=== PATIENT | female | born 1995 | race American Indian/Alaskan Native ===

== ENCOUNTER 2016-06-14 18:38 | Emergency (ER) | payer MEDICAID ==
[2016-06-14 18:56] VITALS: PULSE 82; TEMP 98.4; O2SAT 100
--- NOTE | 2016-06-14 19:35 | C.PDOC ---
History Of Present Illness 20 y/o F c no PMHx p/w vomiting and loose stools that began 15 hours ago. Patient states she ate out at a restaurant last night and awoke at 4am with vomiting. Notes vomited twice, NBNB, then diarrhea 3 episodes NB. She states the vomiting has stopped and she feels very well right now but stayed home from work and wanted to make sure it was nothing more serious but thinks it is a stomach virus. Denies fever, chills, weakness, chest pain, dyspnea, dysuria, vaginal bleeding. Time Seen by Provider: 06/14/16 19:25 Chief Complaint (Nursing): Abdominal Pain Past Medical History Vital Signs: Last Vital Signs Temp 98.4 F 06/14/16 18:55 Pulse 82 06/14/16 18:55 Resp 20 06/14/16 18:55 BP 101/67 06/14/16 18:55 Pulse Ox 100 06/14/16 19:38 - [facility] Procedures MANUAL ASSIST DELIV NEC (09/08/12) Family History: States: Unknown Family Hx - Social History Hx Tobacco Use: No Hx Alcohol Use: No Hx Substance Use: No - Immunization History Hx Tetanus Toxoid Vaccination: Yes Hx Influenza Vaccination: No Hx Pneumococcal Vaccination: No Review Of Systems Except As Marked, All Systems Reviewed And Found Negative. Constitutional: Negative for: Fever Cardiovascular: Negative for: Chest Pain Physical Exam - Physical Exam Additional Physical Exam Comments: Constitutional: No acute distress. Head: Normocephalic. Atraumatic. Eyes: PERRL. ENT: Moist mucous membranes. Neck: Supple. Cardiovascular: Regular rate. Chest: No tenderness. Respiratory: Clear to auscultation bilaterally. GI: Soft. Nontender. Nondistended. Back: No CVA tenderness. Musculoskeletal: No tenderness or swelling of extremities. Skin: No rash. Neurologic: Alert, no focal deficit. ED Course And Treatment O2 Sat by Pulse Oximetry: 100 Medical Decision Making Medical Decision Making: Vital signs normal, patient states she feels well. Advised continued hydration, Zofran as needed, wash hands, rest, return to ER for worsening pain, specific location of pain, intractible vomiting. Disposition - Disposition Disposition: HOME/ ROUTINE Disposition Time: 19:33 Condition: STABLE Prescriptions: Ondansetron ODT [Zofran ODT] 4 mg PO Q8 #12 odt Instructions: Gastroenteritis (ED) Forms: Work Excuse - Clinical Impression Clinical Impression: Vomiting, Diarrhea - Scribe Statement The provider has reviewed the documentation as recorded by the Scribhira Torrez All medical record entries made by the Damonibe were at my direction and personally dictated by me. I have reviewed the chart and agree that the record accurately reflects my personal performance of the history, physical exam, medical decision making, and the department course for this patient. I have also personally directed, reviewed, and agree with the discharge instructions and disposition.
[2016-06-14 19:54] VITALS: BP 110/69; RESP 18
== END 2016-06-14 19:56 | disposition home or self-care (01) ==
LOC: C.ER 18:38
DX: R11.10 Vomiting, unspecified (principal); R19.7 Diarrhea, unspecified

== ENCOUNTER 2016-07-20 19:37 | Emergency (ER) | payer MEDICAID ==
[2016-07-20 20:08] VITALS: RESP 20
[2016-07-20 20:50] LABS: RBC URINE 2 /hpf (0-3); URINE BACTERIA RARE (<OCC); URINE BILIRUBIN NEGATIVE (NEGATIVE); URINE BLOOD NEGATIVE (NEGATIVE); URINE COLOR Yellow (YELLOW); URINE GLUCOSE (UA) NORMAL (Normal); URINE KETONE NEGATIVE (NEGATIVE); URINE LEUKOCYTE ESTERASE NEG Leu/uL (Negative); URINE PROTEIN NEGATIVE (NEGATIVE); URINE UROBILINOGEN NORMAL mg/dL (0.2-1.0); WBC URINE 1 /hpf (0-5)
--- NOTE | 2016-07-20 20:56 | C.PDOC ---
History Of Present Illness A 20 year old female presents to the ER c/o mild aching lower back pain that is non-radiating that began this morning. Patient notes she took Advil and the pain went away. Patient now comes in for evaluation, she wants to make sure she does not get a kidney infection. Patient denies fever, chills, nausea, vomiting , dysuria, pelvic pain, or any other complaints. Time Seen by Provider: 07/20/16 20:14 Chief Complaint (Nursing): Back Pain History Per: Patient History/Exam Limitations: no limitations Onset/Duration Of Symptoms: Hrs Current Symptoms Are (Timing): Still Present Severity: Mild Exacerbating Factor(s): Nothing Recent travel outside of the [place]: No Additional History Per: Patient Past Medical History Reviewed: Historical Data, Nursing Documentation, Vital Signs Vital Signs: Last Vital Signs Temp 98.1 F 07/20/16 21:26 Pulse 88 07/20/16 21:26 Resp 20 07/20/16 21:26 BP 116/78 07/20/16 21:26 Pulse Ox 99 07/20/16 21:26 - Medical History PMH: No Chronic Diseases - [facility] Procedures MANUAL ASSIST DELIV NEC (09/08/12) Family History: States: Unknown Family Hx - Social History Hx Tobacco Use: No Hx Alcohol Use: No Hx Substance Use: No - Immunization History Hx Tetanus Toxoid Vaccination: Yes Hx Influenza Vaccination: No Hx Pneumococcal Vaccination: No Review Of Systems Except As Marked, All Systems Reviewed And Found Negative. Constitutional: Negative for: Fever, Chills Gastrointestinal: Negative for: Nausea, Vomiting Musculoskeletal: Positive for: Back Pain (Lower back pain) Physical Exam - Physical Exam Appears: Non-toxic, No Acute Distress Skin: Warm, Dry Head: Atraumatic, Normacephalic Eye(s): bilateral: Normal Inspection, EOMI Neck: Normal ROM Chest: Symmetrical Cardiovascular: Rhythm Regular, No Murmur Respiratory: Normal Breath Sounds, No Accessory Muscle Use, No Rales, No Rhonchi , No Wheezing Gastrointestinal/Abdominal: Soft, No Tenderness Back: Normal Inspection, No CVA Tenderness, No Vertebral Tenderness Neurological/Psych: Oriented x3, Normal Speech, Other (No focal deficit) ED Course And Treatment O2 Sat by Pulse Oximetry: 100 (RA) Pulse Ox Interpretation: Normal Medical Decision Making Medical Decision Making: Impression: 20 y/o c/o lower back pain that began this morning resolved with motrin Plans: -UA UA and preng negative. Patient is in no acute distress at this time. Patient was advised to follow up with PMD for further evaluation. Disposition Counseled Patient/Family Regarding: Diagnosis, Need For Followup - Disposition Disposition: HOME/ ROUTINE Disposition Time: 21:25 Condition: GOOD Additional Instructions: Take Motrin or other anti-inflammatory medication, with food to not upset stomach. Follow up with orthopedic if pain persists over one week. Instructions: Back Pain (ED) Forms: Work Excuse - POA Present On Arrival: None - Clinical Impression Clinical Impression: Low back pain - Scribe Statement The provider has reviewed the documentation as recorded by the Scribe Richmond vergara All medical record entries made by the Damonibhira were at my direction and personally dictated by me. I have reviewed the chart and agree that the record accurately reflects my personal performance of the history, physical exam, medical decision making, and the department course for this patient. I have also personally directed, reviewed, and agree with the discharge instructions and disposition.
[2016-07-20 21:29] VITALS: BP 116/78; PULSE 88; TEMP 98.1
[2016-07-20 21:54] VITALS: O2SAT 100
== END 2016-07-20 21:26 | disposition home or self-care (01) ==
LOC: C.ER 19:37
DX: M54.5 Low back pain (principal)

== ENCOUNTER 2016-09-15 00:59 | Emergency (ER) | payer MEDICAID ==
[2016-09-15 01:52] LABS: HCG,QUALITATIVE URINE NEGATIVE (NEGATIVE)
[2016-09-15 01:59] LABS: URINE CLARITY Hazy (Clear); URINE COLOR YELLOW (YELLOW)
[2016-09-15 02:00] LABS: SQUAMOUS EPITHIAL 5 /hpf (0-5); URINE BILIRUBIN NEGATIVE (NEGATIVE); URINE BLOOD NEGATIVE (NEGATIVE); URINE GLUCOSE (UA) NEGATIVE (Normal); URINE LEUKOCYTE ESTERASE TRACE Leu/uL (Negative); URINE NITRATE NEGATIVE (NEGATIVE); URINE PROTEIN NEGATIVE (NEGATIVE); URINE UROBILINOGEN Normal mg/dL (0.2-1.0)
[2016-09-15] MEDS ORDERED: Sodium Chloride 0.9% 1,000 ML IV STA (02:24)
[2016-09-15] MEDS ORDERED: Sodium Chloride 0.9% 1,000 ML ONE (02:36)
[2016-09-15 02:41] LABS: BASO % 0.5 % (0.0-2.0); EOS # 0.2 K/uL (0.0-0.7); EOS % 2.3 % (0.0-4.0); HEMOGLOBIN 12.3 g/dL (11.0-16.0); LYMPH # 2.7 K/uL (1.0-4.3); LYMPH % 26.6 % (20.0-40.0); MEAN CELL VOLUME 73.2 fL (81.0-99.0); MEAN CORPUSCULAR HEMOGLOBIN 23.4 pg (27.0-31.0); MEAN CORPUSCULAR HGB CONC 31.9 g/dL (33.0-37.0); MEAN PLATELET VOLUME 8.7 fL (7.2-11.7); MONO # 0.8 K/uL (0.0-0.8); MONO % 8.1 % (0.0-10.0); NEUT # 6.2 K/uL (1.8-7.0); NEUT % 62.5 % (50.0-75.0); RBC 5.25 Mil/uL (3.80-5.20); RED CELL DISTRIBUTION WIDTH 14.1 % (11.5-14.5)
[2016-09-15 02:55] LABS: ALBUMIN 3.9 g/dL (3.5-5.0)
[2016-09-15 02:57] VITALS: TEMP 98.3
[2016-09-15 02:58] LABS: ALB/GLOB RATIO 1.2 (1.0-2.1); ALT/SGPT 42 U/L (9-52); AST/SGOT 42 U/L (14-36); BLOOD UREA NITROGEN 14 mg/dL (7-17); GFR AFRICAN-AMERICAN > 60; GFR NON-AFRICAN AMERICAN > 60
[2016-09-15 02:59] LABS: CALCIUM 8.8 mg/dl (8.6-10.4); LIPASE 80 U/L (23-300)
--- NOTE | 2016-09-15 03:21 | C.PDOC ---
History Of Present Illness 20 year old female who presents to the ER with a complaint of pelvic pain for the past 2 days. Patient states she had irritation to the vaginal area for the past few days and pain began yesterday but worsened today. Denies dysuria, hematuria, frequency, incontinence, vomiting, or diarrhea. Chief Complaint (Nursing): Abdominal Pain History Per: Patient History/Exam Limitations: no limitations Onset/Duration Of Symptoms: Days Current Symptoms Are (Timing): Still Present Location Of Pain/Discomfort: Suprapubic Radiation Of Pain To:: None Quality Of Discomfort: Unable To Describe Associated Symptoms: denies: Nausea, Vomiting, Urinary Symptoms Exacerbating Factors: None Alleviating Factors: None Recent travel outside of the [place]: No Abnormal Vaginal Bleeding: No Past Medical History Reviewed: Historical Data, Nursing Documentation, Vital Signs Vital Signs: Last Vital Signs Temp 98.3 F 09/15/16 01:27 Pulse 67 09/15/16 06:27 Resp 16 09/15/16 06:27 BP 110/63 09/15/16 06:27 Pulse Ox 98 09/15/16 06:28 - Medical History PMH: No Chronic Diseases Surgical History: No Surg Hx - [facility] Procedures MANUAL ASSIST DELIV NEC (09/08/12) Family History: States: Unknown Family Hx - Social History Hx Tobacco Use: No Hx Alcohol Use: No Hx Substance Use: No - Immunization History Hx Tetanus Toxoid Vaccination: Yes Hx Influenza Vaccination: No Hx Pneumococcal Vaccination: No Review Of Systems Gastrointestinal: Negative for: Vomiting, Diarrhea Genitourinary: Positive for: Pelvic Pain. Negative for: Dysuria, Frequency, Incontinence, Hematuria Physical Exam - Physical Exam Appears: Non-toxic Skin: Normal Color, Warm, Dry Head: Atraumatic, Normacephalic Oral Mucosa: Moist Chest: Symmetrical, No Tenderness Cardiovascular: Rhythm Regular, No Murmur Respiratory: Normal Breath Sounds, No Rales, No Rhonchi, No Wheezing Gastrointestinal/Abdominal: Normal Exam, Tenderness (Suprapubic), No Guarding, No Rebound Pelvic: Normal Speculum Exam, Cervical Motion Tenderness, Adnexal Tenderness, Other (Cottage cheese like discharge) Neurological/Psych: Oriented x3, Normal Speech, Normal Cognition ED Course And Treatment - Laboratory Results Result Diagrams: 09/15/16 02:34 09/15/16 02:34 O2 Sat by Pulse Oximetry: 98 (Room air) Pulse Ox Interpretation: Normal - CT Scan/US Pelvic US Other Rad Studies (CT/US): Read By Radiologist, Radiology Report Reviewed CT/US Interpretation: US Pelvis, Transabdominal and Transvaginal. CLINICAL HISTORY: 20 years old, female; Pain; Pelvic pain. TECHNIQUE: Real-time transabdominal and transvaginal pelvic ultrasound (complete) with image documentation. Transvaginal imaging was used for better evaluation of the endometrium and adnexa. COMPARISON: No relevant prior studies available. FINDINGS: Uterus/cervix: Unremarkable in echogenicity and size measuring 9.0 x 3.5 x 5.3 cm. The uterus is. retroverted. Normal endometrial stripe thickness, measuring 12 mm. No myometrial mass. Right ovary: Unremarkable in echogenicity and size measuring 4.6 x 1.8 x 2.5 cm. No mass. Normal blood flow. Left ovary : Unremarkable in echogenicity and size measuring 3.9 x 1.3 x 2.3 cm. No mass. Normal. blood flow. Free fluid: A small amount of complex free fluid is detected adjacent to the left adnexa. IMPRESSION: A small amount of complex free fluid adjacent to the left adnexa. Otherwise, unremarkable sonographic evaluation of the female pelvis, as detailed above. Progress Note: Blood work, urinalysis, and pelvic US ordered. Toradol and IV fluids administered. On reevaluation, patient is resting comfortably and is no longer in pain. Will discharge home with instructions to follow up with [employer] or PMD. Rocephin, Zithromax and Diflucan were given. Disposition - Disposition Disposition: HOME/ ROUTINE Disposition Time: 06:16 Condition: GOOD Additional Instructions: Follow up with your PMD and OBGYN within 1-2 days. Return to ED if feel worse. Prescriptions: Ibuprofen [Motrin Tab] 600 mg PO Q8 #30 tab Instructions: Vulvovaginal Candidiasis (ED), Pelvic Pain in Women (ED) - Clinical Impression Clinical Impression: Pelvic pain, Vaginitis - Scribe Statement The provider has reviewed the documentation as recorded by the Scribhira Monet All medical record entries made by the Scribe were at my direction and personally dictated by me. I have reviewed the chart and agree that the record accurately reflects my personal performance of the history, physical exam, medical decision making, and the department course for this patient. I have also personally directed, reviewed, and agree with the discharge instructions and disposition.
--- NOTE | 2016-09-15 05:16 | US ---
US Pelvis, Transabdominal and Transvaginal CLINICAL HISTORY: 20 years old, female; Pain; Pelvic pain TECHNIQUE: Real-time transabdominal and transvaginal pelvic ultrasound (complete) with image documentation. Transvaginal imaging was used for better evaluation of the endometrium and adnexa. COMPARISON: No relevant prior studies available. FINDINGS: Uterus/cervix: Unremarkable in echogenicity and size measuring 9.0 x 3.5 x 5.3 cm. The uterus is retroverted. Normal endometrial stripe thickness, measuring 12 mm. No myometrial mass. Right ovary: Unremarkable in echogenicity and size measuring 4.6 x 1.8 x 2.5 cm. No mass. Normal blood flow. Left ovary: Unremarkable in echogenicity and size measuring 3.9 x 1.3 x 2.3 cm. No mass. Normal blood flow. Free fluid: A small amount of complex free fluid is detected adjacent to the left adnexa. IMPRESSION: A small amount of complex free fluid adjacent to the left adnexa. Otherwise, unremarkable sonographic evaluation of the female pelvis, as detailed above.
[2016-09-15] MEDS ORDERED: cefTRIAXone (Rocephin) 250 mg Inj IM STA (05:43)
[2016-09-15 06:28] VITALS: BP 110/63; PULSE 67; RESP 16; O2SAT 98
== END 2016-09-15 06:27 | disposition home or self-care (01) ==
LOC: C.ER 00:59
DX: N76.0 Acute vaginitis (principal); R10.2 Pelvic and perineal pain
CPT/HCPCS: 76830; 76856; 80053; 81001; 83690; 84703; 85025; 87491; 87591; 96361; 96372; 96374; 99284; J0696; J1885; J7040

== ENCOUNTER 2016-12-11 15:57 | Emergency (ER) | payer SELFPAY ==
[2016-12-11 16:07] VITALS: RESP 16; TEMP 98.4; O2SAT 98
[2016-12-11] MEDS ORDERED: Sodium Chloride 0.9% 1,000 ML IV ONE (16:27)
[2016-12-11 17:02] LABS: RBC URINE < 1 /hpf (0-3); URINE BACTERIA RARE (<OCC); URINE BILIRUBIN NEGATIVE (NEGATIVE); URINE BLOOD NEGATIVE (NEGATIVE); URINE COLOR Straw (YELLOW); URINE GLUCOSE (UA) NORMAL (Normal); URINE KETONE NEGATIVE (NEGATIVE); URINE LEUKOCYTE ESTERASE NEG Leu/uL (Negative); URINE PROTEIN NEGATIVE (NEGATIVE); URINE UROBILINOGEN NORMAL mg/dL (0.2-1.0); WBC URINE < 1 /hpf (0-5)
[2016-12-11 17:17] LABS: BASO % 0.6 % (0.0-2.0); EOS # 0.2 K/uL (0.0-0.7); HEMATOCRIT 35.9 % (34.0-47.0); LYMPH # 2.2 K/uL (1.0-4.3); LYMPH % 33.5 % (20.0-40.0); MEAN CELL VOLUME 73.3 fL (81.0-99.0); MEAN CORPUSCULAR HEMOGLOBIN 23.8 pg (27.0-31.0); MEAN CORPUSCULAR HGB CONC 32.5 g/dL (33.0-37.0); MEAN PLATELET VOLUME 8.8 fL (7.2-11.7); MONO # 0.7 K/uL (0.0-0.8); NRBC % 0.1 % (0.0-2.0); WHITE BLOOD COUNT 6.5 K/uL (4.8-10.8)
--- NOTE | 2016-12-11 17:25 | C.PDOC ---
History Of Present Illness 21 y/o female presents to ED with complaints of cramping abdominal pain for 2 days. Patient is requesting for baby to be checked out and denies fever, chills, vaginal bleeding, urinary symptoms, back pain or any other complaints at this time. Time Seen by Provider: 12/11/16 16:11 Chief Complaint (Nursing): Abdominal Pain History Per: Patient History/Exam Limitations: no limitations Onset/Duration Of Symptoms: Days Current Symptoms Are (Timing): Still Present Past Medical History Reviewed: Historical Data, Nursing Documentation, Vital Signs Vital Signs: Last Vital Signs Temp 98.4 F 12/11/16 16:04 Pulse 93 H 12/11/16 16:04 Resp 16 12/11/16 16:04 BP 105/68 12/11/16 16:04 Pulse Ox 98 12/11/16 18:43 - Medical History PMH: No Chronic Diseases Surgical History: No Surg Hx - [facility] Procedures MANUAL ASSIST DELIV NEC (09/08/12) Family History: States: No Known Family Hx - Social History Hx Tobacco Use: No Hx Alcohol Use: No Hx Substance Use: No - Immunization History Hx Tetanus Toxoid Vaccination: Yes Hx Influenza Vaccination: Yes Hx Pneumococcal Vaccination: No Review Of Systems Constitutional: Negative for: Fever, Chills Gastrointestinal: Positive for: Abdominal Pain. Negative for: Nausea, Vomiting , Diarrhea Genitourinary: Negative for: Dysuria, Hematuria, Vaginal Bleeding Musculoskeletal: Negative for: Back Pain Skin: Negative for: Rash Physical Exam - Physical Exam Appears: Non-toxic, No Acute Distress Skin: Normal Color, Warm, Dry, No Rash Head: Atraumatic, Normacephalic Oral Mucosa: Moist Neck: Normal ROM, Supple Chest: Symmetrical Cardiovascular: Rhythm Regular Respiratory: Normal Breath Sounds, No Rales, No Rhonchi, No Wheezing Gastrointestinal/Abdominal: Soft, Tenderness (suprapubic ), No Guarding, No Rebound Back: No CVA Tenderness Neurological/Psych: Oriented x3 ED Course And Treatment - Laboratory Results Result Diagrams: 12/11/16 17:04 12/11/16 17:04 Lab Interpretation: Normal Urine POC: Positive O2 Sat by Pulse Oximetry: 98 (RA) Pulse Ox Interpretation: Normal - CT Scan/US No standard instances Other Rad Studies (CT/US): Read By Radiologist, Radiology Report Reviewed CT/US Interpretation: Findings: The uterus measures approximately 9.8 x 5.7 x 6.1 cm. Retroverted. Cervix length measures approximately 3.8 cm. There is a single intrauterine fetus present. 1 mm yolk sac. The gestational sac measures 1.8 cm and is compatible with a gestational age of 6 weeks 1 day. The crown- rump length measures 0.4 cm and is compatible with a gestational age of 6 weeks 1 day. There is heart motion which measured 117 BPM. The right ovary measures 3.0 x 1.6 x 2.0 cm. The left ovary measures 3.0 x 2.3 x 2.9 cm and contains 1.1 x 1.9 x 0.8 cm cyst. Blood flow was demonstrated to both ovaries. Impression: Live single intrauterine with estimated gestational age 6 weeks 1 day. heart rate 117 bpm. Advise an anomaly screen at 16-18 weeks gestational age Progress Note: On re-evaluation lungs clear, abdomen soft non-tender Reassessment Condition: Improved Medical Decision Making Medical Decision Making: Plan: Labs, If positive Ultrasound Disposition Counseled Patient/Family Regarding: Studies Performed, Diagnosis, Need For Followup, Rx Given - Disposition Referrals: [facility] [Outside] 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 - Scribe Statement The provider has reviewed the documentation as recorded by the Deysi Balbuena All medical record entries made by the Deysi were at my direction and personally dictated by me. I have reviewed the chart and agree that the record accurately reflects my personal performance of the history, physical exam, medical decision making, and the department course for this patient. I have also personally directed, reviewed, and agree with the discharge instructions and disposition.
[2016-12-11 17:27] LABS: CHLORIDE 103 mmol/L (98-107)
[2016-12-11 17:28] LABS: POTASSIUM 3.9 mmol/L (3.6-5.2); SODIUM 135 mmol/L (132-148)
[2016-12-11 17:30] LABS: CARBON DIOXIDE 21 mmol/L (22-30); GFR AFRICAN-AMERICAN > 60
[2016-12-11 17:31] LABS: BLOOD UREA NITROGEN 10 mg/dL (7-17); CALCIUM 9.2 mg/dl (8.6-10.4); GLUCOSE,RANDOM 68 mg/dL (65-105)
--- NOTE | 2016-12-11 18:03 | US ---
Indication: Bleeding Comparison: None available. Technique: Real-time transabdominal pelvic ultrasound was performed. In addition a transvaginal pelvic ultrasound was necessary to better depict pelvic anatomy. Findings: The uterus measures approximately 9.8 x 5.7 x 6.1 cm. Retroverted. Cervix length measures approximately 3.8 cm. There is a single intrauterine fetus present. 1 mm yolk sac. The gestational sac measures 1.8 cm and is compatible with a gestational age of 6 weeks 1 day. The crown-rump length measures 0.4 cm and is compatible with a gestational age of 6 weeks 1 day. There is heart motion which measured 117 BPM. The right ovary measures 3.0 x 1.6 x 2.0 cm. The left ovary measures 3.0 x 2.3 x 2.9 cm and contains 1.1 x 1.9 x 0.8 cm cyst. Blood flow was demonstrated to both ovaries. Impression: Live single intrauterine with estimated gestational age 6 weeks 1 day. heart rate 117 bpm. Advise an anomaly screen at 16-18 weeks gestational age
[2016-12-11 19:01] VITALS: BP 121/68; PULSE 78
== END 2016-12-11 19:00 | disposition home or self-care (01) ==
LOC: C.ER 15:57
DX: O26.891 Other specified pregnancy related conditions, first trimester (principal); R10.30 Lower abdominal pain, unspecified; Z3A.01 Less than 8 weeks gestation of pregnancy

== ENCOUNTER 2017-02-28 19:19 | Emergency (ER) | payer MEDICAID ==
[2017-02-28 19:26] VITALS: BP 98/61; PULSE 78; RESP 20; TEMP 97.5; O2SAT 99
--- NOTE | 2017-02-28 19:42 | C.PDOC ---
History Of Present Illness 21 year old female presents to the ER with a complaint of generalized weakness, cough, and nasal congestion since yesterday that worsened today. Patient states she was unable to go to work today due to her symptoms and is requesting nasal spray, cough medicine, and a note for work. Denies fever, sick contact, or recent travel. Time Seen by Provider: 02/28/17 19:29 Chief Complaint (Nursing): Cough, Cold, Congestion History Per: Patient History/Exam Limitations: no limitations Onset/Duration Of Symptoms: Days Current Symptoms Are (Timing): Still Present Location Of Pain: Diffuse Myalgias Sick Contacts (Context): None Associated Symptoms: Cough, Nasal Congestion, Other (Generalized weakness). denies: Fever Ear Symptoms: Bilateral: None Recent travel outside of the [place]: No Past Medical History Reviewed: Historical Data, Nursing Documentation, Vital Signs Vital Signs: Last Vital Signs Temp 97.5 F L 02/28/17 19:24 Pulse 78 02/28/17 19:24 Resp 20 02/28/17 19:58 BP 98/61 L 02/28/17 19:24 Pulse Ox 99 03/01/17 00:01 - Medical History PMH: No Chronic Diseases - [facility] Procedures MANUAL ASSIST DELIV NEC (09/08/12) Family History: States: Unknown Family Hx - Social History Hx Tobacco Use: No Hx Alcohol Use: No Hx Substance Use: No - Immunization History Hx Tetanus Toxoid Vaccination: Yes Hx Influenza Vaccination: Yes Hx Pneumococcal Vaccination: No Review Of Systems Constitutional: Positive for: Weakness. Negative for: Fever, Chills ENT: Positive for: Nose Congestion Respiratory: Positive for: Cough Gastrointestinal: Negative for: Nausea, Vomiting Skin: Negative for: Rash Physical Exam - Physical Exam Appears: Non-toxic, No Acute Distress Skin: Normal Color, Warm, Dry Head: Atraumatic, Normacephalic Eye(s): bilateral: Normal Inspection Ear(s): Bilateral: Normal Nose: Normal, Other (Congested) Oral Mucosa: Moist Throat: Normal, No Erythema, No Exudate Neck: Normal, Supple Chest: Symmetrical, No Tenderness Cardiovascular: Rhythm Regular Respiratory: Normal Breath Sounds, No Rales, No Rhonchi, No Wheezing Gastrointestinal/Abdominal: Soft, No Tenderness Neurological/Psych: Oriented x3, Normal Speech ED Course And Treatment O2 Sat by Pulse Oximetry: 99 (Room air) Pulse Ox Interpretation: Normal Progress Note: Patient given Rx and work notes and instructed to follow up with PMD for further evaluation. Disposition - Disposition Disposition: HOME/ ROUTINE Disposition Time: 19:38 Condition: STABLE Additional Instructions: Follow up with PMD within 1-2 days. Return to ED if feel worse. 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 - Scribe Statement The provider has reviewed the documentation as recorded by the Scribe Mat Monet All medical record entries made by the Scribe were at my direction and personally dictated by me. I have reviewed the chart and agree that the record accurately reflects my personal performance of the history, physical exam, medical decision making, and the department course for this patient. I have also personally directed, reviewed, and agree with the discharge instructions and disposition.
== END 2017-02-28 19:58 | disposition home or self-care (01) ==
LOC: C.ER 19:19
DX: J06.9 Acute upper respiratory infection, unspecified (principal)

== ENCOUNTER 2017-03-29 16:39 | Emergency (ER) | payer MEDICAID ==
[2017-03-29 16:57] VITALS: RESP 18
[2017-03-29 18:57] VITALS: BP 101/66; PULSE 88; TEMP 98.5; O2SAT 100
--- NOTE | 2017-03-29 21:25 | C.PDOC ---
History Of Present Illness 21 y/o female presents to the ER complaining of fever and sore throat which has been present since yesterday. Patient denies having cough, congestion, chest pain and SOB. Of note, patient's boyfriend has the same symptoms. Time Seen by Provider: 03/29/17 18:30 Chief Complaint (Nursing): ENT Problem History Per: Patient History/Exam Limitations: no limitations Onset/Duration Of Symptoms: Days Current Symptoms Are (Timing): Still Present Sick Contacts (Context): Friend(s) (Boyfriend) Associated Symptoms: Fever. denies: Cough, Nasal Congestion Severity: Moderate Past Medical History Reviewed: Historical Data, Nursing Documentation, Vital Signs Vital Signs: Last Vital Signs Temp 98.5 F 03/29/17 18:56 Pulse 88 03/29/17 18:56 Resp 18 03/29/17 18:56 BP 101/66 03/29/17 18:56 Pulse Ox 100 03/29/17 21:27 - Medical History PMH: No Chronic Diseases Surgical History: No Surg Hx - [facility] Procedures MANUAL ASSIST DELIV NEC (09/08/12) Family History: States: No Known Family Hx - Social History Hx Tobacco Use: No Hx Alcohol Use: No Hx Substance Use: No - Immunization History Hx Tetanus Toxoid Vaccination: Yes Hx Influenza Vaccination: Yes Hx Pneumococcal Vaccination: Yes Review Of Systems Except As Marked, All Systems Reviewed And Found Negative. Constitutional: Positive for: Fever. Negative for: Chills ENT: Positive for: Throat Pain. Negative for: Nose Congestion Respiratory: Negative for: Cough Physical Exam - Physical Exam Appears: Non-toxic, No Acute Distress Skin: Normal Color, Warm Head: Atraumatic, Normacephalic Eye(s): bilateral: Normal Inspection, EOMI Ear(s): Bilateral: Normal Nose: Normal Oral Mucosa: Moist Throat: Erythema, Exudate, No Drooling Neck: Normal, Normal ROM, Supple Lymphatic: Normal Exam Chest: Symmetrical Cardiovascular: Rhythm Regular Respiratory: Normal Breath Sounds, No Accessory Muscle Use, No Rhonchi, No Wheezing Extremity: Normal ROM Neurological/Psych: Oriented x3, Normal Speech, Normal Cognition ED Course And Treatment O2 Sat by Pulse Oximetry: 100 Progress Note: Patient was given Amoxicllin and Tylenol. Patient was discharged and told to follow up with PMD in 1-3 days. Disposition - Disposition Disposition: HOME/ ROUTINE Disposition Time: 18:30 Condition: STABLE Additional Instructions: Follow up with primary medical doctor in 1-3 days without fail for further evaluation. Take medications as prescribed. Return to the emergency department at any time if symptoms persist or worsen. Prescriptions: Amoxicillin 875 mg PO BID #14 tablet Ibuprofen [Motrin] 600 mg PO Q6 PRN #20 tab PRN Reason: Pain, Mild (1-3) Instructions: Pharyngitis (ED) Forms: [employer] (Belarusian), Work Excuse - Clinical Impression Clinical Impression: Pharyngitis - PA / INDUSTRIAL PARAMEDIC / Resident Statement MD/DO has reviewed & agrees with the documentation as recorded. - Scribe Statement The provider has reviewed the documentation as recorded by the Deysi Lee Provider Attestation All medical record entries made by the Deysi were at my direction and personally dictated by me. I have reviewed the chart and agree that the record accurately reflects my personal performance of the history, physical exam, medical decision making, and the department course for this patient. I have also personally directed, reviewed, and agree with the discharge instructions and disposition.
== END 2017-03-29 19:03 | disposition home or self-care (01) ==
LOC: C.ER 16:39
DX: J02.9 Acute pharyngitis, unspecified (principal)

== ENCOUNTER 2017-04-04 17:49 | Emergency (ER) | payer MEDICAID ==
[2017-04-04 18:15] VITALS: BP 113/70; PULSE 79; RESP 16; TEMP 97.7; O2SAT 99
--- NOTE | 2017-04-04 18:38 | C.PDOC ---
History Of Present Illness 21 yr old female presents to the ER for evaluation of vaginal irritation and discharge gradually developed since yesterday . Patient admits , taking antibiotics now for " sore throat". Denies fever, chills, nausea, vomiting, abdominal pain, dysuria , vaginal bleeding, back pain. Ambulate to ED for evaluation, not in any apparent distress. Time Seen by Provider: 04/04/17 18:21 Chief Complaint (Nursing): Female Genitourinary History Per: Patient History/Exam Limitations: no limitations Onset/Duration Of Symptoms: Days Current Symptoms Are (Timing): Still Present Past Medical History Reviewed: Historical Data, Nursing Documentation, Vital Signs Vital Signs: Last Vital Signs Temp 97.7 F 04/04/17 18:12 Pulse 79 04/04/17 18:12 Resp 16 04/04/17 18:12 BP 113/70 04/04/17 18:12 Pulse Ox 99 04/04/17 18:42 - [employer] [facility] Procedures MANUAL ASSIST DELIV NEC (09/08/12) Family History: States: No Known Family Hx - Social History Hx Tobacco Use: No Hx Alcohol Use: No Hx Substance Use: No - Immunization History Hx Tetanus Toxoid Vaccination: Yes Hx Influenza Vaccination: Yes Hx Pneumococcal Vaccination: Yes Review Of Systems Except As Marked, All Systems Reviewed And Found Negative. Constitutional: Negative for: Fever, Chills Gastrointestinal: Negative for: Nausea, Vomiting, Abdominal Pain Genitourinary: Positive for: Vaginal Discharge, Other ((+) vaginal irritation). Negative for: Dysuria, Vaginal Bleeding Physical Exam - Physical Exam Appears: Well, Non-toxic, No Acute Distress Skin: Warm, Dry, No Rash Oral Mucosa: Moist Throat: No Erythema, No Drooling Neck: Trachea Midline, Supple Cardiovascular: Rhythm Regular Respiratory: Normal Breath Sounds, No Rales, No Rhonchi, No Stridor, No Wheezing Gastrointestinal/Abdominal: Soft, No Tenderness, No Distention, No Guarding, No Rebound Back: No CVA Tenderness Extremity: Normal ROM, No Swelling Neurological/Psych: Oriented x3, Normal Speech ED Course And Treatment O2 Sat by Pulse Oximetry: 99 (RA) Pulse Ox Interpretation: Normal Progress Note: On re-eval, pt is afebrile, hemodynamicaly stable, non-toxic, not in any apparent distress. ENT: no acute findings. neck: Supple Abd: benign. Neurologicaly intact. UA results review and appears normal. Parent hsa clinical findings c/w vulvovaginitis, candidial sec to abx use. ref. to F/u with PMD, SCREEN AND CYCLONE REPAIRER in 2-3 days for re-eval. return if any new changes. Medical Decision Making Medical Decision Making: PLAN: * HCG * Urinalysis Disposition Counseled Patient/Family Regarding: Studies Performed, Diagnosis, Need For Followup, Rx Given - [facility]position [facility] Disposition: HOME/ ROUTINE Disposition Time: 18:51 Condition: STABLE Additional Instructions: ENCOURAGE FLUIDS TAKE MEDICATION PRESCRIBED FOLLOW UP WITH SCREEN AND CYCLONE REPAIRER IN 2-3 DAYS FOR RE-EVALUATION. RETURN TO ED IF ANY WORSENING OR NEW CHANGES. Prescriptions: Fluconazole [Diflucan] 100 mg PO DAILY #2 tab Miconazole [Miconazole 7] 100 mg VG HS #7 sup Instructions: Vulvovaginal Candidiasis (ED) Forms: [employer] (Peruvian) - Clinical Impression Clinical Impression: Vulvovaginal candidiasis - PA / MANAGER SALT / Resident Statement MD/DO has reviewed & agrees with the documentation as recorded. - Scribe Statement The provider has reviewed the documentation as recorded by the Scribe Carolina Franklin All medical record entries made by the Damonibhira were at my direction and personally dictated by me. I have reviewed the chart and agree that the record accurately reflects my personal performance of the history, physical exam, medical decision making, and the department course for this patient. I have also personally directed, reviewed, and agree with the discharge instructions and disposition.
[2017-04-04 18:39] LABS: HCG,QUALITATIVE URINE NEGATIVE (NEGATIVE)
[2017-04-04 18:47] LABS: SQUAMOUS EPITHIAL 6 /hpf (0-5); URINE BILIRUBIN NEGATIVE (NEGATIVE); URINE BLOOD NEGATIVE (NEGATIVE); URINE CLARITY Hazy (Clear); URINE COLOR Yellow (YELLOW); URINE GLUCOSE (UA) NORMAL (Normal); URINE LEUKOCYTE ESTERASE NEG Leu/uL (Negative); URINE NITRATE NEGATIVE (NEGATIVE); URINE PROTEIN NEGATIVE (NEGATIVE)
== END 2017-04-04 19:03 | disposition home or self-care (01) ==
LOC: C.ER 17:49
DX: B37.3 Candidiasis of vulva and vagina (principal)

== ENCOUNTER 2017-12-07 19:24 | Emergency (ER) | payer SELFPAY ==
[2017-12-07 19:31] VITALS: BP 119/73; PULSE 93; RESP 18; TEMP 99; O2SAT 98
--- NOTE | 2017-12-07 19:45 | C.PDOC ---
History Of Present Illness 22 year old female presents to the ED requesting medication for her stomach and a work note. Patient reports that on Friday she had abdominal cramping associated with nausea, vomit and diarrhea. Patient states symptoms have improved. Patient denies fever, chills, dysuria, hamturia, recent travel, sick contacts. Time Seen by Provider: 12/07/17 19:33 Chief Complaint (Nursing): Abdominal Pain History Per: Patient History/Exam Limitations: no limitations Onset/Duration Of Symptoms: Days Current Symptoms Are (Timing): Better Location Of Pain/Discomfort: Diffuse Radiation Of Pain To:: None Quality Of Discomfort: "Pain" Associated Symptoms: denies: Nausea, Vomiting, Diarrhea Alleviating Factors: denies: None Recent travel outside of the [place]: No Additional History Per: Patient Abnormal Vaginal Bleeding: No Past Medical History Reviewed: Historical Data, Nursing Documentation, Vital Signs Vital Signs: Last Vital Signs Temp 99.0 F 12/07/17 19:27 Pulse 93 H 12/07/17 19:27 Resp 18 12/07/17 19:27 BP 119/73 12/07/17 19:27 Pulse Ox 98 12/07/17 19:27 - Medical History PMH: No Chronic Diseases Surgical History: No Surg Hx - [facility] Procedures MANUAL ASSIST DELIV NEC (09/08/12) Family History: States: Unknown Family Hx - Social History Hx Tobacco Use: No Hx Alcohol Use: No Hx Substance Use: No - Immunization History Hx Tetanus Toxoid Vaccination: Yes Hx Influenza Vaccination: Yes Hx Pneumococcal Vaccination: No Review Of Systems Constitutional: Negative for: Fever, Chills Cardiovascular: Negative for: Chest Pain Respiratory: Negative for: Shortness of Breath Gastrointestinal: Negative for: Nausea, Vomiting, Abdominal Pain, Diarrhea Skin: Negative for: Rash Neurological: Negative for: Weakness, Numbness Physical Exam - Physical Exam Appears: Non-toxic, No Acute Distress Skin: Normal Color, Warm, Dry Head: Atraumatic, Normacephalic Eye(s): bilateral: Normal Inspection Neck: Normal ROM, Supple Chest: Symmetrical Cardiovascular: Rhythm Regular Respiratory: Normal Breath Sounds, No Rales, No Rhonchi, No Wheezing Gastrointestinal/Abdominal: Soft, No Tenderness, No Guarding, No Rebound Extremity: Normal ROM, No Tenderness, No Swelling Neurological/Psych: Oriented x3, Normal Speech, Normal Cognition Gait: Steady ED Course And Treatment O2 Sat by Pulse Oximetry: 98 (ON RA) Pulse Ox Interpretation: Normal Progress Note: Plan: - Pepcid. - Work note Disposition Counseled Patient/Family Regarding: Diagnosis, Need For Followup, Rx Given - Disposition Referrals: [facility] [Outside] Disposition: HOME/ ROUTINE Disposition Time: 19:45 Condition: STABLE Additional Instructions: FOLLOW UP WITH YOUR DOCTOR IN 1-2 DAYS USE MEDICATION NEEDED RETURN TO ER IF SYMPTOMS WORSEN Prescriptions: Famotidine [Pepcid] 20 mg PO BID PRN #15 tab PRN Reason: abdominal Forms: General Discharge Instructions, [facility] (Syriac), Work Excuse Print Language: ICELANDIC - POA Present On Arrival: None - Clinical Impression Clinical Impression: Abdominal discomfort - Scribe Statement The provider has reviewed the documentation as recorded by the Scribe Carson Barbosa All medical record entries made by the Scribe were at my direction and personally dictated by me. I have reviewed the chart and agree that the record accurately reflects my personal performance of the history, physical exam, medical decision making, and the department course for this patient. I have also personally directed, reviewed, and agree with the discharge instructions and disposition.
== END 2017-12-07 19:57 | disposition home or self-care (01) ==
LOC: C.ER 19:24
DX: R10.9 Unspecified abdominal pain (principal)

== ENCOUNTER 2018-07-26 16:15 | Emergency (ER) | payer BC ==
[2018-07-26 16:30] VITALS: BP 105/70; PULSE 88; TEMP 99.5; O2SAT 99
--- NOTE | 2018-07-26 17:01 | C.PDOC ---
History Of Present Illness 22-year-old female presents to the ED requesting a work note. Patient states she was sick with nausea and vomiting yesterday and did not go to work. pt feels better today and tolerates po food and fluids, has no abdominal pain. . She presents to the ED because her primary doctor's office is closed. She denies fever, chills. Time Seen by Provider: 07/26/18 16:42 Chief Complaint (Nursing): Medical Clearance History Per: Patient History/Exam Limitations: no limitations Onset/Duration Of Symptoms: Hrs Current Symptoms Are (Timing): Gone Additional History Per: Patient Past Medical History Reviewed: Historical Data, Nursing Documentation, Vital Signs Vital Signs: Last Vital Signs Temp 99.5 F 07/26/18 16:21 Pulse 88 07/26/18 16:21 Resp 18 07/26/18 16:21 BP 105/70 07/26/18 16:21 Pulse Ox 99 07/26/18 16:21 Primary Care Provider: Non [facility] Provider, - Medical History PMH: No Chronic Diseases Surgical History: No Surg Hx - [facility] Procedures MANUAL ASSIST DELIV NEC (09/08/12) Family History: States: Unknown Family Hx - Social History Hx Tobacco Use: No Hx Alcohol Use: No Hx Substance Use: No - Immunization History Hx Tetanus Toxoid Vaccination: Yes Hx Influenza Vaccination: Yes Hx Pneumococcal Vaccination: No Review Of Systems Constitutional: Positive for: Other (requesting work note). Negative for: Fever, Chills Gastrointestinal: Positive for: Nausea (yesterday), Vomiting (yesterday) Physical Exam - Physical Exam Appears: Non-toxic, No Acute Distress Skin: Normal Color, Warm, Dry Head: Atraumatic, Normacephalic Eye(s): bilateral: Normal Inspection Cardiovascular: Rhythm Regular Respiratory: No Decreased Breath Sounds, No Rales, No Rhonchi Gastrointestinal/Abdominal: Bowel Sounds, Soft, No Tenderness, No Distention, No Guarding, No Rebound Extremity: Normal ROM Neurological/Psych: Oriented x3, Normal Speech, Normal Cognition ED Course And Treatment O2 Sat by Pulse Oximetry: 99 (on RA) Pulse Ox Interpretation: Normal Medical Decision Making Medical Decision Making: pt had nausea and vomiting yesterday. feels fine today, needs work note. Disposition Counseled Patient/Family Regarding: Diagnosis, Need For Followup - Disposition Referrals: [facility] [Outside] [facility] [Outside] Disposition: HOME/ ROUTINE Disposition Time: 17:02 Condition: GOOD Additional Instructions: Follow up with your doctor, Eat bland foods and drink increased fluids. Instructions: Nausea and Vomiting, Adult (DC) Forms: General Discharge Instructions, [facility] (Gibraltarian), Work Excuse - Clinical Impression Clinical Impression: Nausea & vomiting - PA / ANIMAL CARE PROVIDER / Resident Statement MD/DO has reviewed & agrees with the documentation as recorded. - Scribe Statement The provider has reviewed the documentation as recorded by the Scribe (Deisy Trent) All medical record entries made by the Scribe were at my direction and personally dictated by me. I have reviewed the chart and agree that the record a ccurately reflects my personal performance of the history, physical exam, medical decision making, and the department course for this patient. I have also personally directed, reviewed, and agree with the discharge instructions and disposition.
[2018-07-26 17:07] VITALS: RESP 20
== END 2018-07-26 17:06 | disposition home or self-care (01) ==
LOC: C.ER 16:15
DX: R11.2 Nausea with vomiting, unspecified (principal)